=== PATIENT | female | born 1970 | race Two or more races ===

== ENCOUNTER 2019-09-24 15:20 | Outpatient (AMB) | payer MEDICAID, SELFPAY ==
--- NOTE | 2019-09-24 15:49 | URCARE_ITS ---
Intake Ht./Wt. Decline/Exclusions Patient Declined Height and Weight this visit: No PT Meets exclusion criteria: No Vital Signs 09/24/19 15:55 Height 5 ft Height Method Measured Weight 65.771 kg Weight Measurement Method Standing Scale BMI 28.3 Temp 99.0 F Temp Source Temporal Artery Scan Pulse 86 Pulse Source Monitor Respiration 20 BP 138/83 H Blood Pressure Source Automatic Cuff Blood Pressure Location Right Upper Arm Position Sitting Pulse Oximetry (%) 98 Oxygen Delivery Method Room Air Intake [place] Travel (last 14 days): No Been in Contact w/Anyone Being Evaluated for Coronavirus (last 14 days): No Been in Close Contact w/Anyone Dx w/Coronavirus: No Zika Travel: No Been in contact w/anyone who has been Dx w/Zika Virus: No Been in contact w/anyone sick during travel outside country: No Patient >or equal to 18 years BMI outside of range 18.5-24.9: Yes Visit Reasons: UC Cough, UC Facial/Scalp Injury Primary Care Provider: Melvi Klein Is patient in pain?: No Triage Triage Allergy / Med Rec Allergies bertha Allergy (Intermediate, Verified 09/24/19 15:49) SWELLING AND RASH Band Placement: Patient Identification IDANIA: [id number] Arrival Mode of Arrival: Private Vehicle Method of Arrival: Ambulatory Accompanied By: Self PCP or OBGYN visit in last 3 months: No Language Preferred Language: [place] Classics Professor Required: No Female History Now: No : No Social History Alcohol / Drugs Hx Alcohol Use: No Hx Substance Use: No Safety Do You Feel Safe at Home: Yes Authorities Contacted: N/A Renteria Fall Scale Special Populations Patient Comatose, Paralyzed or Immobile: No Patient Under the Age of 44 Years Old: No Assessment History of falling; immediate or within 3 months: No Secondary diagnosis: No Ambulatory aid: None IV Infusion: No Gait/Transferring: Normal/bedrest/immobile Mental Status: Oriented to own ability Score Score: 0 Risk Level/Action Risk Level: Low Risk Action: Good Basic Nursing Care Fall Star Level 1 Fall Star Level 1: Yes Patient Education Topic Education Topics: Discharge Instructions and Plan of Care Teaching Recipient: Patient Readiness, Motivation to Learn: Active Methods: Verbal instruction and Hand Out Educ Materials Suggested by INFO Button/Rx Monograph Given: No Response: Verbalize Understanding Classics Professor Required: No Population Health PMH Hx Congestive Heart Failure: No Hx Diabetes Mellitus Type 1: No Hx Diabetes Mellitus Type 2: No Hx Renal Disease: No Hx Chronic Obstructive Pulmonary Disease (COPD): No Past Medical History Reviewed and agree with Nursing documentation.: Yes Past Medical History History Provided By: Patient Past Medical History: Yes Cardiac Medical History Hx Congestive Heart Failure: No Endocrine Medical History Hx Diabetes Mellitus Type 1: No Hx Diabetes Mellitus Type 2: No Genitourinary Medical History Hx Genitourinary Disorders: Yes Hx Kidney Stones: Yes Hx Renal Disease: No Respiratory Medical History Hx COPD: No GI Surgical History Hx Abdominal Surgery: Yes Female Reproductive Surgical History Hx Hysterectomy: Yes [facility] -Treatments & Interventions Hx Blood Transfusions: Yes HPI Laceration Details: Patient here for evaluation of the aches and chills and fevers since yesterday. Denies cough or throat or symptoms. Cough Pulmonary Results: No Data to Display Review of Systems (UC) Review of Systems All systems reviewed & no additional complaints except as documented Const Constitutional: Reports body ache, Reports chills and Reports fever(s) ENT Ears. Nose, Mouth, and Throat: Denies nasal congestion, Denies nasal discharge and Denies sore throat Resp Respiratory: Denies chest congestion and Denies cough Skin/Breast Skin/Breast: Denies dry skin, Denies itching and Denies rash Exam (UC) Limitations: no limitations General Appearance: alert, in no apparent distress, comfortable, cooperative, healthy appearing, well developed and well groomed Head exam: atraumatic, normocephalic and normal inspection ENT exam: Present normal exam, normal external ear exam, TM's normal bilaterally, normal oropharynx and mucous membranes moist SPO2%: 98% Cardiovascular exam: Present regular rate and regular rhythm Abdominal Exam: Present non-tender, non-distended, normal bowel sounds and soft Extremities exam: normal inspection Back exam: Present normal inspection Neurological Exam: Present alert, awake and oriented X3 Psychiatric exam: Present normal affect and normal mood Skin exam: Present warm, dry, intact and normal color Office Procedures UC Level of Care Nursing/Assessment/Reassessment Patient Status: Established Patient Nursing Assessment/Reassessment: Triage Asessment, Initial Vital Signs and RN General Assessments Coordination of Care: DC Instructions Simple 1-2 sets Established Patient Charge Established Patient Point Assignment: 40 Established Patient Point Assignment: EP Level 2 (40-75) Procedures: Pulse Ox reading: Yes UC Rapid Influenza Bedside Test Rapid Flu: Negative Assessment and Plan Assessment & Plan (1) Laceration: (2) Cough: (3) Viral syndrome: Plan - Johnny Castaneda(URGENT CARE), LIVESTOCK DEALER: Rest and fluids like we discussed. Take Motrin Tylenol for any fevers or discomfort return here or see your PCP in 2 days if not improving. Plan Details Other Orders: Orders: Rapid Influenza Today Primary Care Provider: Melvi Klein Instructions: ED Viral Syndrome Additional Information PA/ETHNIC ORIGINS TEACHER Supervising Physician: Narinder Jean DC Evaluation Discharge Information Seen, Treated and Released by Provider: No Left Prior to Receiving Discharge Instructions: No Transfer to Outside Facility: No Vital Signs Vitals Signs N/A: Yes Pain Pain Medication / Other Intervention Provided: No Medication Medication Given this Visit: No Discharge Information Condition on Discharge: Stable Mode of Discharge: Ambulatory Discharge Transportation: Private Vehicle Instructions Classics Professor Required: No Discharge Instructions Given To: Patient Was Follow up Care Ordered: Yes Verbalizes Understanding of Discharge Instructions: Yes [facility] information card provided?: Yes Patient plan follow up w/PCP for [facility]: No
[2019-09-24 15:55] VITALS: BP 138/83; PULSE 86; RESP 20; TEMP 37.2; O2SAT 98; BMI 28.3
== END 2019-09-24 16:15 | disposition home or self-care (01) ==
PROVIDERS: PCP Physician Assistant; Referring Provider Physician Assistant; Visit Provider Nurse Practitioner Family

== ENCOUNTER → 2025-03-29 | Outpatient (CLI) | payer MEDICAID, SELFPAY ==
--- NOTE | 2025-03-29 13:15 | XR_ITS ---
Examination: Screening digital mammography, bilateral Computer aided detection 3-D breast Tomosynthesis, bilateral Date and time of exam: March 29, 2025 at 1349 hours, compared to mammograms dating to 03/16/2014 Indication: Screening Technique: Nonmagnified MLO, CC views of the breasts to been obtained, reconstructed from 3-D Tomosynthesis images. R2 computer aided detection program utilized for evaluation of suspicious masses and/or abnormal calcifications. 3-D Tomosynthesis images obtained. Findings: The breasts are heterogeneously dense, which may obscure small masses Breast biopsy marker adjacent to circumscribed nodule in the inner upper right breast, the nodule measures smaller compared to August 31, 2019 7 mm partially circumscribed nodule inner upper left breast Impression: BI-RADS Category 0: Incomplete: Need additional imaging evaluation Recommend follow-up spot tomographic views of 7 mm nodule inner upper left breast as well as bilateral breast sonography to complete the workup
== END | disposition home or self-care (01) ==
LOC: CDIM 13:03
PROVIDERS: PCP Physician Assistant; Referring Provider Physician Assistant; Visit Provider Physician Assistant
DX: Z12.31 Encounter for screening mammogram for malignant neoplasm of breast (principal); N63.22 Unspecified lump in the left breast, upper inner quadrant; R92.8 Other abnormal and inconclusive findings on diagnostic imaging of breast
CPT/HCPCS: 77063; 77067